=== PATIENT | male | born 1995 | race Caucasian/White ===

== ENCOUNTER 2024-05-20 11:20 | Outpatient (AMB) | payer OTHER, SELFPAY ==
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
[2024-05-20 11:29] VITALS: BP 125/60; PULSE 64; RESP 16; TEMP 37.1; O2SAT 100; BMI 25.4
== END 2024-05-20 12:30 | disposition home or self-care (01) ==
PROVIDERS: PCP Nurse Practitioner Family; Visit Provider Nurse Practitioner Family
DX: Z00.00 Encounter for general adult medical examination without abnormal findings (principal); Z72.89 Other problems related to lifestyle; E63.9 Nutritional deficiency, unspecified; F41.9 Anxiety disorder, unspecified; F32.A Depression, unspecified; Z23 Encounter for immunization

== ENCOUNTER → 2024-05-20 11:20 | Outpatient (BNVA) | payer OTHER, SELFPAY | PROVIDERS: PCP Nurse Practitioner Family; Visit Provider Nurse Practitioner Family | DX: Z00.00 Encounter for general adult medical examination without abnormal findings (principal); Z23 Encounter for immunization; E63.9 Nutritional deficiency, unspecified; F41.9 Anxiety disorder, unspecified; F32.A Depression, unspecified; Z72.89 Other problems related to lifestyle | CPT/HCPCS: 90471; 90472; 90656; 90715; 96127 ==

== ENCOUNTER 2024-05-29 10:21 | Outpatient (REF) | payer OTHER, SELFPAY ==
[2024-05-29 14:29] LABS: MANUAL DIFF FLAG NO
[2024-05-29 14:35] LABS: Basophils Percent Auto 0.2 % (0-2); Eosinophils Percent Auto 0.3 % (0-4); Hematocrit 45.5 % (42.0-52.0); Hemoglobin 14.9 g/dl (14.0-18.0); Imm Gran Abs Auto 0.02 X10*3/uL (0.00-0.03); Imm Gran Pct Auto 0.3 % (0.0-0.4); Lymphocytes Absolute Auto 1.6 X10*3/uL (1.2-4.9); Lymphocytes Percent Auto 27.2 % (20-40); Mean Corpuscular HGB Conc 32.7 g/dl (31.0-36.0); Mean Corpuscular Hemoglobin 28.8 pg (27.0-33.0); Mean Platelet Volume 10.2 fL (9.4-12.4); Monocytes Absolute Auto 0.5 X10*3/uL (0.1-1.2); Neutrophils Absolute Auto 3.7 x10*3/uL (2.0-8.3); Platelet Count 209 X10*3/uL (160-400); Red Blood Count 5.17 X10*6/uL (4.60-5.80); Red Cell Distribution Width 12.9 % (11.0-16.0); White Blood Count 5.9 X10*3/uL (4.8-10.8)
[2024-05-29 14:39] LABS: Appearance Urine Turbid; Color Urine Yellow; Glucose Urine UA Negative (Negative); Leukocyte Esterase Urine Negative (Negative); Nitrite Urine Negative (Negative); PH 7.5 (5.0-9.0); Specific Gravity - Urine 1.025 (1.005-1.025); Urine Blood Negative (Negative); Urine Ketones Negative (Negative); Urine Protein Negative (Neg-Trace)
[2024-05-29 15:24] LABS: Albumin Level 4.5 g/dL (3.5-5.0); Alkaline Phosphatase 66 U/L (39-117); Anion Gap 12 (12-20); Aspartate Amino Transferase 36 U/L (5-37); Bilirubin Total 0.5 mg/dL (0.0-1.0); Blood Urea Nitrogen 13 mg/dL (9-16); Calcium 9.8 mg/dL (8.4-10.2); Carbon Dioxide 24 mmol/L (22-29); Chloride 110 mmol/L (96-108); Cholesterol 166 mg/dL (<200); Estimated Glomerular Filt Rate > 60; Glucose Fasting 92 mg/dL (60-99); HDL Cholesterol 57 mg/dL (>40); LDL Cholesterol Calculated 101 mg/dL (<100); Sodium 142 mmol/L (135-145); Total Protein 7.8 g/dL (6.5-8.0); Triglycerides 40 mg/dL (<150)
[2024-05-29 15:25] LABS: Alanine Aminotransferase 39 U/L (0-40)
[2024-05-29 15:36] LABS: TSH reflex Free T4 0.14 uIU/mL (0.32-4.0)
[2024-05-29 16:48] LABS: Free T4 (Free Thyroxine) 1.02 ng/dL (0.71-1.85)
== END 2024-05-29 10:22 | disposition home or self-care (01) ==
LOC: HO.WFDLDS 10:21
PROVIDERS: Visit Provider Nurse Practitioner Family
DX: Z00.00 Encounter for general adult medical examination without abnormal findings (principal)
CPT/HCPCS: 36415; 80053; 80061; 81003; 84439; 84443; 85025

== ENCOUNTER 2024-06-03 13:34 | Outpatient (AMB) | payer OTHER, SELFPAY ==
--- NOTE | 2024-06-03 13:32 | MHC.PC.OV ---
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 He reports recent blister rash to his face or which he had a telehealth appointment with a provider and was prescribed valacyclovir twice daily. He notes that the rash is now scabbed. He reports history of blister rash to his face and inside his nostril, at least once a year, whenever is under significant stress. He requests preventative treatment of the rash with daily Valtrex. No acute symptoms at this time. [facility] Medical History (Updated 06/03/24 @ 14:38 by Tom Toussaint CNP) Eczema Depression Anxiety Family History (Updated 05/20/24 @ 11:39 by Willa Garcia) Father Alcohol abuse Sister Substance abuse Mother FH: mental illness Maternal Grandfather High blood pressure High cholesterol Diabetes Alcohol abuse Paternal Grandmother Alcohol abuse Social History (Updated 05/20/24 @ 11:31 by Willa Garcia) Housing: Apartment Patient Tobacco Use Status: Former Tobacco user Cigarette Packs Per Day: 1 Cigarettes Per Day: 20 e-Cigarette/Vaping Use: Currently Using Second Hand Smoke Exposure: Yes Substance Use Type: Marijuana service: No Current occupational status: employed Current occupation: [employer] Current occupational exposures/hazards: No Cognitive needs: No Hearing needs: No Vision needs: No Questionnaire Thrive Questionnaire Date Thrive assessed: 05/20/24 MAHENDRA-7 AMB Questionnaire MAHENDRA-7 Date MAHENDRA - 7 assessed: 05/20/24 Source: Developed by Drs. Daniel Duran, Lulu Fair, Forest Patino and colleagues, with an educational salvatore from [employer]. Review of Systems Const Details: Denies chills, Denies fatigue, Denies fever(s), Denies headache(s) and Denies weakness Cardiac Denies chest pain, Denies claudication, Denies leg edema, Denies lightheadedness, Denies palpitations, Denies dyspnea, Denies dyspnea on exertion, Denies orthopnea and Denies other (Loss of consciousness) Resp Denies cough, Denies excessive phlegm production, Denies dyspnea, Denies dyspnea on exertion, Denies snoring and Denies wheezing Skin Reports as per HPI Physical exam (Primary Care) Tobacco/Smoking Status: Tobacco use Status Tobacco use date assessed 06/03/24 06/03/24 13:34 Patient Tobacco Use Status Former Tobacco user 06/03/24 13:34 e-Cigarette/Vaping Use Currently Using 06/03/24 13:34 Thrive Assessment: Date of Thrive Assessment Date Thrive assessed 05/20/24 06/03/24 13:34 Const Other: Alert and oriented x4. Telehealth Telehealth Telehealth Platform: Telephone Location of provider rendering services: practice address Location of patient: address on file Patient Identification confirmed using: Name, : Yes Telehealth method: voice only Patient verbally consented to treatment: Yes Patient verbally consented to billing insurance company: Yes Patient informed of any privacy concerns related to visit: Yes Coding Level of Care Code Tele Est Pt Level 3 (03371) Diagnoses Elevated LDL cholesterol level E78.00 Low TSH level R79.89 History of cold sores Z86.19 Time Spent (min) 20 Assessment & Plan Assessment & Plan (1) Elevated LDL cholesterol level: Code(s): E78.00 - Pure hypercholesterolemia, unspecified Category: Medical Plan: Recent LDL level is slightly elevated, 101. Advised to limit foods high in saturated fat and avoid foods high in trans fat. Routine exercise encouraged. Will monitor lipid panel levels periodically or based on related symptoms or concerns. Advised to schedule his next extended physical for on/or after 05/20/2025. Return sooner with symptoms or concerns. Verbalized understanding and agreed with treatment plan. (2) Low TSH level: Code(s): R79.89 - Other specified abnormal findings of blood chemistry Category: Medical Plan: Recent TSH level is depressed, 0.14, free free T4 is normal, 1.02. Will repeat TSH/T4 for trend and if TSH is still elevated with normal free T4 without symptoms, subclinical hyperthyroidism will be likely. Will review results and make changes as needed. Verbalized understanding and agreed with the plan. (3) History of cold sores: Code(s): Z86.19 - Personal history of other infectious and parasitic diseases Category: Medical Plan: History of cold sore at least once a year, related to stress. Valacyclovir 500 mg daily ordered; advised to take as prescribed. Will reassess treatment need at 4 months. Verbalized understanding and agreed with the plan. Orders: Orders TSH reflex Free T4 Today R79.89 - Other specified abnormal findings of blood chemistry Medications: New valacyclovir 500 mg PO DAILY 30 days 30 tabs 3RF
--- OUTSIDE RECORDS SUMMARY | 2024-06-03 17:03 | XMS_ITS | Clinical Summary ---
Author Organization [facility] Address [address] [place] [address] Care Team Providers Care Property And Supply Officer Name Role Phone Sammy Galvan MD Primary Care Provider [phone] Source Comments PLEASE NOTE, if this patient is a minor, it may be UNLAWFUL to discuss sensitive information that is contained in these records (such as FAMILY PLANNING, MENTAL HEALTH or SUBSTANCE ABUSE) with the minor patient's parent or other person without the patient's specific authorization.[facility] Allergies No known active allergies Medications nicotine (NICODERM CQ) 21 mg/24 hr patchIndications: Cigarette nicotine dependence without complication Place 1 Patch onto the skin once daily (every 24 hours) 28 Patch 0 Active cloNIDine HCL (CATAPRES) 0.2 mg tablet TAKE 1 TABLET BY MOUTH TWICE A DAY 60 Tablet 2 1 Active sertraline (ZOLOFT) 50 mg tablet TAKE 1 TABLET BY MOUTH EVERY DAY 30 Tablet 2 1 Active hydrOXYzine pamoate (VISTARIL) 50 mg capsule TAKE 1 CAP BY MOUTH 3 TIMES DAILY NEEDED FOR ANXIETY OR SLEEP 90 Capsule 2 1 Active Active Problems Problem Noted Date Diagnosed Date Elevated BP without diagnosis of hypertension: h x Depression with anxiety Opioid use disorder History of heroin use History of incarceration Overview (04/19/2020): discharged on 11/12/2019 Immunizations Name Administration Dates Next Due DTAP 08/21/2002, 9,1997,08/25,1997 Flu, Multi Dose 0.5 ML 01/03/2012 Flu, Preservative Free 12/17/2013,2013 HEP B, PED/ADOL 02/01/1998,1997,1997 Hib (PRP-T) 1997,1997,1997 IPV 08/21/2002,04/27/1998,1997 MENINGOCOCCAL MCV4P (MENACTRA) 2013,2009 MMR (MMR II/Priorix) 05/22/2001,08/10/1998 Moderna COVID-19 Vaccine, re d cap blue label, 12+ Primary Series 11/03/2021 TDAP 12/27/2009 Varicella, Live Vaccine 07/12/2007,04/27/1998 Family History Medical History Relation Name Comments No Known Problems Father Diabetes Maternal Grandfather Breast cancer Maternal Grandmother No Known Problems Mother Relation Name Status Comments Father Maternal Grandfather Maternal Grandmother Mother Social History Tobacco Use Types Packs/Day Years Used Date Smoking Tobacco: Every Day Cigarettes Smokeless Tobacco: Never Tobacco Cessation:Ready to Q uit: No; Counseling Given: Yes Alcohol Use Standard Drinks/Week Comments Not Currently 0 (1 standard drink = 0.6 oz pur e alcohol) Social Connections Answer Date Recorded Connectedness 0 12/23/2023 Financial Resource Strain Answer Date R ecorded Financial Resource Strain 0 2019 Stress Answer Date Recorded Stress 0 11/13/2019 Physical Activity Answer Date Recorded Physical Activity 0 11/13/2019 Food Insecurity Answer Date Recorded Food 0 12/27/2023 Transportation Needs Answer Date Record ed Transportation 0 11/13/2019 Housing Stability Answer Date Recorded Housing 0 11/13/2019 Safety and Environment Answer Date Olvin rded Safety 0 11/13/2019 Utilities Answer Date Recorded Utilities 0 11/13/2019 Employment Answer Date Recorded Stress 0 12/23/2023 Sex and Gender Information Value Date Recorded Sex Assigned at Not on file Legal Sex Male 8:19 AM PDT Gender Identity Not on file Sexual Orientation Not on file Plan of Treatment Health Maintenance Due Date Last Done Comments Depression Monitoring 1997 Hepatitis C Screening 1997 Tobacco Screening 1997 HIV Screening 2012 Imm-HPV (1 - Male 3-dose series) 2012 Annual Preventive Care Visit 2015 Hypertension Screening (#1) 2015 Imm-Pneumococcal (1 of 2 - PCV) 2016 Imm-DTaP/Tdap/Td (7 - Td or Tdap) 12/28/2019 12/27/2009, 08/21/2002, 11/17/1998, Additional history exists Tobacco Cessation Counseling (#1) 03/31/2021 [id number] (4 - season) 2023 11/03/2021, 07/12/2020, 06/16/2020 Imm-Influenza (#1) 2023 12/17/2021, 0 12/17/2013, 2013, Additional history exists Alcohol and Drug Screen 04/02/2024 Imm-Hepatitis B Completed 02/01/1998, 10/01, 1997 Insurance [facility] Care Teams Property And Supply Officer Relationship Specialty Start Date End Date Sammy Galvan MD [address] [place] [id number] PCP - General Family Medicine, Physician 04/20/22
== END 2024-06-03 14:44 | disposition home or self-care (01) ==
LOC: HO.HMCFM 13:34
PROVIDERS: PCP Nurse Practitioner Family; Visit Provider Nurse Practitioner Family
DX: E78.00 Pure hypercholesterolemia, unspecified (principal); R79.89 Other specified abnormal findings of blood chemistry; Z86.19 Personal history of other infectious and parasitic diseases

== ENCOUNTER → 2024-06-03 13:34 | Outpatient (BNVA) | payer OTHER, SELFPAY | PROVIDERS: PCP Nurse Practitioner Family; Visit Provider Nurse Practitioner Family ==